=== PATIENT | male | born 1975 | race Caucasian/White ===

== ENCOUNTER 2017-07-21 15:54 | Outpatient (CLI) | payer BC ==
--- NOTE | 2017-07-21 18:07 | ULT ---
THYROID ULTRASOUND: 07/21/17 COMPARISON: None. HISTORY: Left sided neck mass. TECHNIQUE: Multiplanar navarro scale and color doppler images obtained in a thyroid ultrasound. FINDINGS: there is a complex mixed echogenicity solid mass in the left lobe of the thyroid. This measures 1.5 c m in greatest dimension. This is well circumscribed and wider than it is tall. No suspicious calcific ations are seen within this mass. No other thyroid nodules are seen. The thyroid lobes measures 4.0 a nd 4.4 cm in length on the right and left, respectively. IMPRESSION: Left thyroid mass. This is a TI-RADS category 3 lesion. For a lesion between 1.5 cm and 2.5 cm, follo wup at 1, 3, and 5 year intervals is recommended. POS: [facility]
== END 2017-07-21 15:55 | disposition home or self-care (01) ==
LOC: ULT 15:54
PROVIDERS: ATTEND Family Medicine
DX: R22.1 Localized swelling, mass and lump, neck (principal); E07.89 Other specified disorders of thyroid
CPT/HCPCS: 76536